=== PATIENT | male | born 1960 | race Caucasian/White ===

== ENCOUNTER 2020-12-12 18:43 | Emergency (ER) | payer OTHER ==
[2020-12-12] MEDS ORDERED: LODINE CAP 300300 MG PO (20:48)
== END 2020-12-12 20:55 | disposition home or self-care (01) ==
LOC: ER1 18:43
DX: S01.111A Laceration without foreign body of right eyelid and periocular area, initial encounter (principal); S62.616A Displaced fracture of proximal phalanx of right little finger, initial encounter for closed fracture; S00.83XA Contusion of other part of head, initial encounter; S80.211A Abrasion, right knee, initial encounter; E03.9 Hypothyroidism, unspecified; V91.29XA Fall due to collision between unspecified watercraft and other watercraft or other object, initial encounter; Y92.830 Public park as the place of occurrence of the external cause
CPT/HCPCS: 12013; 29130; 73130; 99283

== ENCOUNTER 2021-01-31 17:10 | Emergency (ER) | payer OTHER ==
[~2021-01-31 17:10] MED LIST: LODINE CAP 300300 MG PO
[2021-01-31 22:31] LABS: HEMOGLOBIN 15.1 gm/dl (14.0-17.5); RED BLOOD COUNT 4.54 M/UL (4.20-5.50); WHITE BLOOD COUNT 3.6 K/UL (4.5-11.0)
[2021-01-31 22:49] LABS: BUN/CREATININE RATIO 18 (0-10)
== END 2021-02-01 00:57 | disposition home or self-care (01) ==
LOC: ER1 17:10
PROVIDERS: Physician Assistant Medical
DX: R00.1 Bradycardia, unspecified (principal); R06.02 Shortness of breath; Z20.822 Contact with and (suspected) exposure to COVID-19
CPT/HCPCS: 36600; 70450; 71045; 80053; 81001; 82550; 82553; 82803; 83874; 84439; 84443; 84484; 85025; 93005; 94664; 99285; U0002